=== PATIENT | female | born 1970 | race Caucasian/White ===

== ENCOUNTER 2017-12-21 17:00 | Inpatient (IN) | payer OTHER ==
[2017-12-21 17:30] LABS: ADD MAN DIFF? NO
[2017-12-21 17:31] LABS: BASO # 0.1 x10^3/uL (0.0-0.2); BASO % 1 % (0-3); EOS # 0.1 x10^3/uL (0.0-0.7); EOS % 1 % (0-3); HEMATOCRIT 44.9 % (36.0-47.0); HEMOGLOBIN 14.6 g/dL (12.0-15.5); LYMPH # 1.6 x10^3/uL (1.0-4.8); LYMPH % 29 % (24-48); MEAN CORPUSCULAR HEMOGLOBIN 29 pg (25-35); MEAN CORPUSCULAR HGB CONC 33 g/dL (31-37); MEAN CORPUSCULAR VOLUME 89 fL (79-100); MONO # 0.6 x10^3/uL (0.0-1.1); MONO % 11 % (0-9); NEUT # 3.2 x10^3uL (1.8-7.7); NEUT % 58 % (31-73); PLATELET COUNT 173 x10^3/uL (140-400); RED BLOOD COUNT 5.04 x10^6/uL (3.50-5.40); RED CELL DISTRIBUTION WIDTH 13.5 % (11.5-14.5); WHITE BLOOD COUNT 5.5 x10^3/uL (4.0-11.0)
[2017-12-21 17:41] LABS: PARTIAL THROMBOPLASTIN TIME 24 SEC (24-38); PROTHROMBIN TIME PATIENT 12.3 SEC (11.7-14.0)
[2017-12-21 17:45] LABS: ANION GAP 14 (6-14); BLOOD UREA NITROGEN 10 mg/dL (7-20); BUN/CREATININE RATIO 14 (6-20); CALCIUM 8.7 mg/dL (8.5-10.1); CARBON DIOXIDE 22 mmol/L (21-32); CHLORIDE 105 mmol/L (98-107); CREATININE 0.7 mg/dL (0.6-1.0); GFR 89.7; GLUCOSE 144 mg/dL (70-99); POTASSIUM 3.3 mmol/L (3.5-5.1); SODIUM 141 mmol/L (136-145)
[2017-12-21 17:51] LABS: ETHANOL < 10 mg/dL (0-10)
[2017-12-21 18:00] LABS: ALBUMIN 3.7 g/dL (3.4-5.0); ALBUMIN/GLOBULIN RATIO 1.1 (1.0-1.7); ALK PHOS 85 U/L (46-116); ALT (SGPT) 25 U/L (14-59); AST (SGOT) 21 U/L (15-37); CREATINE KINASE 88 U/L (26-192); TOTAL BILIRUBIN 0.3 mg/dL (0.2-1.0); TOTAL PROTEIN 7.1 g/dL (6.4-8.2)
[2017-12-21 18:04] LABS: TROPONINI < 0.017 ng/mL (0.000-0.055)
[2017-12-21] MEDS: PROMETHAZINE 12.5 MG in IV NORMAL SALINE 50ML 50 ML IV (18:06)
[2017-12-21] MEDS: IV NORMAL SALINE 1000ML BAG 1,000 ML IV (18:06)
[2017-12-21 18:21] LABS: LACTIC ACID 5.1 mmol/L (0.4-2.0)
[2017-12-21 18:55] LABS: BASE EXCESS COOX -2 mmol/L (-3-3); CARBON MONOXIDE 0.3 % (0.0-1.9); FIO2 COOX 100; HCO3 COOX 24 mmol/L (21-28); METHEMOGLOBIN 0.6 % (0.0-1.9); OXYHEMOGLOBIN 98.2 %; PCO2 COOX 42 mmHg (35-46); PH COOX 7.37 (7.35-7.45); PO2 COOX 418 mmHg (75-108); SAT O2 COOX 99 % (92-99); TOTAL HEMOGLOBIN 14.3 g/dL
[2017-12-21] MEDS: POTASSIUM CHLORIDE 20 MEQ TABLET.ER. PO (19:13)
[2017-12-21 19:24] LABS: URINE HCG POC HCG NEGATIVE (Negative)
[2017-12-21 19:28] LABS: BILIRUBIN,URINE NEGATIVE (NEG); CLARITY,URINE CLEAR; GLUCOSE,URINE NEGATIVE (NEG); NITRITE,URINE NEGATIVE (NEG); PROTEIN,URINE NEGATIVE (NEG-TRACE); UROBILINOGEN,URINE 0.2 mg/dL (0.2 mg/dL)
[2017-12-21 19:35] LABS: BARBITURATES NEG (NEG); BENZODIAZEPINES NEG (NEG); CANNABINOIDS NEG (NEG); COCAINE NEG (NEG); METHADONE NEG (NEG); OPIATES NEG (NEG); PHENCYCLIDINE NEG (NEG)
[2017-12-21 19:38] LABS: COLOR,URINE STRAW
[2017-12-21 19:40] LABS: RBC,URINE 0 /HPF (0-2)
[2017-12-21 19:41] LABS: AMPHETAMINE/METHAMPHETAMINE POS (NEG); BACTERIA,URINE FEW /HPF (0-FEW); ETHANOL, URINE NEG (NEG); SQUAMOUS EPITHELIAL CELL,UR FEW /LPF; WBC,URINE RARE /HPF (0-4)
[2017-12-21] MEDS ORDERED: ONDANSETRON PF 4 MG/2 ML VIAL. IV (20:15)
[2017-12-21] MEDS ORDERED: fentaNYL PF VIAL 100 MCG/2 ML VIAL IV (20:15)
[2017-12-22 06:03] LABS: ADD MAN DIFF? NO
[2017-12-22 06:05] LABS: BASO % 1 % (0-3); EOS # 0.1 x10^3/uL (0.0-0.7); EOS % 1 % (0-3); HEMATOCRIT 41.5 % (36.0-47.0); HEMOGLOBIN 13.4 g/dL (12.0-15.5); LYMPH # 1.5 x10^3/uL (1.0-4.8); LYMPH % 18 % (24-48); MEAN CORPUSCULAR HEMOGLOBIN 29 pg (25-35); MEAN CORPUSCULAR HGB CONC 32 g/dL (31-37); MEAN CORPUSCULAR VOLUME 90 fL (79-100); MONO # 0.7 x10^3/uL (0.0-1.1); MONO % 8 % (0-9); NEUT # 6.1 x10^3uL (1.8-7.7); NEUT % 73 % (31-73); PLATELET COUNT 158 x10^3/uL (140-400); RED BLOOD COUNT 4.62 x10^6/uL (3.50-5.40); RED CELL DISTRIBUTION WIDTH 13.7 % (11.5-14.5); WHITE BLOOD COUNT 8.3 x10^3/uL (4.0-11.0)
[2017-12-22 06:23] LABS: ANION GAP 7 (6-14); BLOOD UREA NITROGEN 7 mg/dL (7-20); CALCIUM 8.1 mg/dL (8.5-10.1); CARBON DIOXIDE 26 mmol/L (21-32); CHLORIDE 109 mmol/L (98-107); CREATININE 0.6 mg/dL (0.6-1.0); GFR 107.2; GLUCOSE 89 mg/dL (70-99); POTASSIUM 3.9 mmol/L (3.5-5.1); SODIUM 142 mmol/L (136-145)
[2017-12-22] MEDS: IBUPROFEN 600 MG TABLET. PO (08:04)
[2017-12-22 08:28] LABS: LACTIC ACID 0.5 mmol/L (0.4-2.0)
[2017-12-22] MEDS: DESVENLAFAXINE 25 MG PO (10:21)
[2017-12-22] MEDS: NON FORMULARY ITEM (Dextroamphetamine/Amphetamine (Adderall 10 Mg Tablet) 10 MG) PO (10:34)
[2017-12-22] MEDS: GADOBUTROL 7.5 MMOL/7.5 ML VIAL IV (11:38)
[2017-12-23] MEDS ORDERED: DESVENLAFAXINE 25 MG TAB.ER.24H PO (09:00)
== END 2017-12-22 15:10 | disposition home or self-care (01) | DRG 101 ==
LOC: ER 17:00 → 6 SOUTH 19:03
DX: G40.89 Other seizures (principal); E87.2 Acidosis; F32.9 Major depressive disorder, single episode, unspecified; F90.9 Attention-deficit hyperactivity disorder, unspecified type; F41.9 Anxiety disorder, unspecified; M54.5 Low back pain
CPT/HCPCS: 36415; 36600; 70450; 70553; 71045; 80048; 80053; 80307; 81001; 81025; 82550; 82805; 83605; 83735; 84484; 85025; 85610; 85730; 93005; 95816; 96365; 96366; 96368; 99285; 99285-25; A9585; G0480; J2550; J7030